=== PATIENT | female | born 1980 | race Caucasian/White ===

== ENCOUNTER 2017-04-14 09:02 | Emergency (ER) | payer BC ==
[~2017-04-14] VITALS: Ht 157.5 cm; Wt 61.2 kg
[~2017-04-14 09:02] MED LIST: ACE500 PO; ACET-1966 PO; AMOX-559 PO; CEP500 PO; CLIN300C99 PO; CYCL10TA29 PO; DAR100 PO; IBU200 PO; IBU800 PO; IBUP800T37 PO; LOR5/325 PO; ONDA4TAB PO; PER PO
[2017-04-14] MEDS ORDERED: NAPR220C12 PO (09:12)
[2017-04-14] MEDS ORDERED: BUPR-474 PO (09:12)
--- NOTE | 2017-04-14 09:14 | ER Report ---
History and Physical Time Seen By MD: 09:14 Hx. of Stated Complaint: pt presents with hx of RLQ pain this am when she awoke. Has vomited x2. HPI/ROS CHIEF COMPLAINT: right abdominal pain and flank pain. HISTORY OF PRESENT ILLNESS: This is a 37 year old female. She has been having pain in the right flank and lower abdomen starting this morning,. Awoke with the pain. Has had vomiting x 2 episodes this morning. Pain worsens in the flank when laying down. Waxes and wanes, but never goes away and is severe. No fevers or chills. She has had an appendectomy and a hysterectomy. No fevers or chills. No diarrhea or bowel changes. Has no dysuria or changes in urination. Allergies: Coded Allergies: No Known Drug Allergies (Verified , 04/14/17) Home Meds Active Scripts Hydrocodone Bit/Acetaminophen (HYDROCODON-ACETAMINOPHEN 5-325) 1 Each Tablet, 1 EACH PO Q4H Y for PAIN, #12 TAB 0 Refills Prov:CRISTIN ALBARRAN MD 04/14/17 Ondansetron (ZOFRAN ODT) 4 Mg Tab.rapdis, 4 MG PO Q6H Y for NAUSEA/VOMITING, # 20 TAB.NGUYỄN 0 Refills Prov:CRISTIN ALBARRAN MD 04/14/17 Reported Medications Naproxen Sodium (ALEVE) 220 Mg Capsule, 220 MG PO PRN, CAPSULE 04/14/17 Bupropion Hcl (WELLBUTRIN XL) 300 Mg Tab.er.24h, 300 MG PO HS, TAB 04/14/17 Acetaminophen (TYLENOL) 325 Mg Tablet, 650 MG PO Q4H 02/15/15 Discontinued Reported Medications Ibuprofen (IBUPROFEN) 800 Mg Tablet, 1 TAB PO Q8H, TAB 02/15/15 Discontinued Scripts Clindamycin Hcl (CLINDAMYCIN HCL) 300 Mg Capsule, 300 MG PO TID, #21 CAPSULE TAKE 1 CAPSULE 3 TIMES A DAY Prov:VEDA ALVAREZ NP 02/17/15 Hydrocodone Bit/Acetaminophen (HYDROCODON-ACETAMINOPHEN 5-325) 1 Each Tablet, 1- 2 EACH PO Q6H, #20 TAB Prov:VEDA ALVAREZ NP 02/15/15 Amoxicillin/Pot Clav 875-125 Mg Tab (AUGMENTIN 875-125 TABLET) 1 Each Tablet, 1 TAB PO Q12H, #20 TAB Prov:VEDA ALVAREZ INSPECTION CLERK 02/15/15 Reviewed Nurses Notes: Yes Hx Smoking: Yes Smoking Status: Current: Every Day Smoker Exposure to Second Hand Smoke?: Yes Hx Substance Use Disorder: No Hx Alcohol Use: Yes (STATES SHE HAS NOT HAD ANY ALCOHOL FOR YEARS) Constitutional Vital Sign - Last 24 Hours 04/14/17 04/14/17 04/14/17 04/14/17 09:08 10:30 12:00 12:30 Temp 97.8 Pulse 96 75 82 76 Resp 20 B/P (MAP) 120/98 118/76 (90) 143/92 (109) 105/66 (79) Pulse Ox 97 94 100 90 O2 Delivery Room Air 04/14/17 04/14/17 12:44 12:45 Pulse 62 62 B/P (MAP) 92/60 (71) 98/60 (73) Pulse Ox 97 93 O2 Delivery Room Air Intake and Output 04/14/17 04/14/17 04/15/17 15:00 23:00 07:00 Intake Total 1000 ml Balance 1000 ml Physical Exam General Appearance: The patient is alert. Acute distress due to pain. Neck: Supple and non tender. Respiratory: Lungs are clear to auscultation. Cardiovascular: Regular rate and rhythm. No murmurs, gallops or rubs. Normal capillary refill. Gastrointestinal: Abdomen with pain in right lower and right flank. Nondistended. Normal active bowel sounds. Has some right CVA tenderness. Neurological: Alert and oriented x3. No focal neurologic deficits Skin: Warm and dry. Musculoskeletal: Extremities are nontender. Full range of motion. DIFFERENTIAL DIAGNOSIS: After history and physical exam, differential diagnosis was considered for right lower abdominal and flank pain including but not limited to musculoskeletal causes, kidney stone, pyelonephritis, shingles, and intra-abdominal causes such as diverticulitis, ovarian cyst, gallbladder. Medical Decision Making Data Points Result Diagram: 04/14/1720 04/14/1720 Laboratory Hematology Test 04/14/17 09:04 04/14/17 09:20 Urine Color Straw Urine Clarity Clear Urine pH 6.0 pH (4.8-9.5) Urine Specific [place] 1.002 Urine Protein Negative mg/dL (NEGATIVE) Urine Glucose (UA) Negative mg/dL (NEGATIVE) Urine Ketones Negative mg/dL (NEGATIVE) Urine Blood Negative (NEGATIVE) Urine Nitrite Negative (NEGATIVE) Urine Bilirubin Negative (NEGATIVE) Urine Urobilinogen Negative mg/dL (0.2-1.9) Urine Leukocyte Esterase Negative (NEGATIVE) Urine RBC None /HPF (0-2/HPF) Urine WBC <1 /HPF (0-5/HPF) Urine Squamous Epithelial Cells Many /LPF (</=FEW) Urine Bacteria Few /HPF (NONE-FEW) Urine Mucus None /HPF (NONE-FEW) Red Blood Count 5.46 M/uL (4.17-5.56) Mean Corpuscular Volume 88.7 fL (80.0-96.0) Mean Corpuscular Hemoglobin 31.0 pg (26.0-33.0) Mean Corpuscular Hemoglobin Concent 34.9 g/dL (32.0-36.0) Red Cell Distribution Width 13.9 % (11.5-14.5) Mean Platelet Volume 8.6 fL (7.2-11.1) Neutrophils (%) (Auto) 63.9 % (39.4-72.5) Lymphocytes (%) (Auto) 28.6 % (17.6-49.6) Monocytes (%) (Auto) 4.5 % (4.1-12.4) Eosinophils (%) (Auto) 2.1 % (0.4-6.7) Basophils (%) (Auto) 0.9 % (0.3-1.4) Nucleated RBC Relative Count (auto) 0.0 /100WBC Neutrophils # (Auto) 4.8 K/uL (2.0-7.4) Lymphocytes # (Auto) 2.1 K/uL (1.3-3.6) Monocytes # (Auto) 0.3 K/uL (0.3-1.0) Eosinophils # (Auto) 0.2 K/uL (0.0-0.5) Basophils # (Auto) 0.1 K/uL (0.0-0.1) Nucleated RBC Absolute Count (auto) 0.00 K/uL Peripheral Blood Smear No Y/N Sodium Level 142 mmol/L (137-145) Potassium Level 3.8 mmol/L (3.5-5.0) Chloride Level 105 mmol/L (98-107) Carbon Dioxide Level 22 mmol/L (22-31) Blood Urea Nitrogen 5 mg/dl (7-18) Creatinine 0.80 mg/dl (0.52-1.04) Glomerular Filtration Rate Calc > 60.0 Random Glucose 76 mg/dl (75-110) Calcium Level 9.5 mg/dl (8.4-10.2) Total Bilirubin 0.5 mg/dl (0.2-1.3) Aspartate Amino Transf (AST/SGOT) 18 U/L (0-35) Alanine Aminotransferase (ALT/SGPT) 27 U/L (0-56) Alkaline Phosphatase 80 U/L (0-126) Total Protein 7.6 gm/dl (6.3-8.2) Albumin 4.5 g/dl (3.5-5.0) Amylase Level 78 U/L (0-110) Lipase 87 U/L (23-300) Human Chorionic Gonadotropin, Qual Negative (NEGATIVE) Chemistry Test 04/14/17 09:04 04/14/17 09:20 Urine Color Straw Urine Clarity Clear Urine pH 6.0 pH (4.8-9.5) Urine Specific [place] 1.002 Urine Protein Negative mg/dL (NEGATIVE) Urine Glucose (UA) Negative mg/dL (NEGATIVE) Urine Ketones Negative mg/dL (NEGATIVE) Urine Blood Negative (NEGATIVE) Urine Nitrite Negative (NEGATIVE) Urine Bilirubin Negative (NEGATIVE) Urine Urobilinogen Negative mg/dL (0.2-1.9) Urine Leukocyte Esterase Negative (NEGATIVE) Urine RBC None /HPF (0-2/HPF) Urine WBC <1 /HPF (0-5/HPF) Urine Squamous Epithelial Cells Many /LPF (</=FEW) Urine Bacteria Few /HPF (NONE-FEW) Urine Mucus None /HPF (NONE-FEW) White Blood Count 7.5 k/uL (4.5-11.0) Red Blood Count 5.46 M/uL (4.17-5.56) Hemoglobin 16.9 g/dL (12.0-16.0) Hematocrit 48.5 % (34.0-47.0) Mean Corpuscular Volume 88.7 fL (80.0-96.0) Mean Corpuscular Hemoglobin 31.0 pg (26.0-33.0) Mean Corpuscular Hemoglobin Concent 34.9 g/dL (32.0-36.0) Red Cell Distribution Width 13.9 % (11.5-14.5) Platelet Count 194 K/uL (150-450) Mean Platelet Volume 8.6 fL (7.2-11.1) Neutrophils (%) (Auto) 63.9 % (39.4-72.5) Lymphocytes (%) (Auto) 28.6 % (17.6-49.6) Monocytes (%) (Auto) 4.5 % (4.1-12.4) Eosinophils (%) (Auto) 2.1 % (0.4-6.7) Basophils (%) (Auto) 0.9 % (0.3-1.4) Nucleated RBC Relative Count (auto) 0.0 /100WBC Neutrophils # (Auto) 4.8 K/uL (2.0-7.4) Lymphocytes # (Auto) 2.1 K/uL (1.3-3.6) Monocytes # (Auto) 0.3 K/uL (0.3-1.0) Eosinophils # (Auto) 0.2 K/uL (0.0-0.5) Basophils # (Auto) 0.1 K/uL (0.0-0.1) Nucleated RBC Absolute Count (auto) 0.00 K/uL Peripheral Blood Smear No Y/N Glomerular Filtration Rate Calc > 60.0 Calcium Level 9.5 mg/dl (8.4-10.2) Total Bilirubin 0.5 mg/dl (0.2-1.3) Aspartate Amino Transf (AST/SGOT) 18 U/L (0-35) Alanine Aminotransferase (ALT/SGPT) 27 U/L (0-56) Alkaline Phosphatase 80 U/L (0-126) Total Protein 7.6 gm/dl (6.3-8.2) Albumin 4.5 g/dl (3.5-5.0) Amylase Level 78 U/L (0-110) Lipase 87 U/L (23-300) Human Chorionic Gonadotropin, Qual Negative (NEGATIVE) Urinalysis Test 04/14/17 09:04 Urine Color Straw Urine Clarity Clear Urine pH 6.0 pH (4.8-9.5) Urine Specific [place] 1.002 Urine Protein Negative mg/dL (NEGATIVE) Urine Glucose (UA) Negative mg/dL (NEGATIVE) Urine Ketones Negative mg/dL (NEGATIVE) Urine Blood Negative (NEGATIVE) Urine Nitrite Negative (NEGATIVE) Urine Bilirubin Negative (NEGATIVE) Urine Urobilinogen Negative mg/dL (0.2-1.9) Urine Leukocyte Esterase Negative (NEGATIVE) Urine RBC None /HPF (0-2/HPF) Urine WBC <1 /HPF (0-5/HPF) Urine Squamous Epithelial Cells Many /LPF (</=FEW) Urine Bacteria Few /HPF (NONE-FEW) Urine Mucus None /HPF (NONE-FEW) EKG/Imaging Imaging ABDOMEN/PELVIS WITH CONTRAST Provided history: right lower quandrant and flank pain Additional pertinent history: none TECHNIQUE: Spiral scan was obtained from the lower chest through the symphysis with intravenous contrast Contrast dose: 75 mL Isovue 370 intravenously. Source images were reformatted in the coronal and sagittal planes. Additional series performed today: none One of the following dose optimization techniques was utilized in the performance of this exam: Automated exposure control; adjustment of the mA and/ or kV according to the patient's size; or use of an iterative reconstruction technique. Specific details can be referenced in the facility's radiology CT exam operational policy. COMPARISON STUDIES: CT 10/26/13 FINDINGS: Lower chest: Negative Liver/biliary: Liver demonstrates normal density, morphology without focal lesion. Surface is smooth. No vascular thromboses. There is subtle thickening and hyperdensity are hyperenhancement along the anterior inferior gallbladder wall best seen axial image 65, coronal image 24 and sagittal image 52. The area of abnormality measures approximately 11 mm in length along the wall and between 3 and 4 mm in thickness. As best I can determine, and this is intramural and not in the lumen. Review of ultrasound reveals no correlate. Bile ducts are normal. Pancreas: Negative Spleen: Negative Adrenal glands: Negative Kidneys / ureters / bladder / genitourinary / retroperitoneum: Kidneys, ureters and bladder are normal. Uterus is absent. There is a small amount of free fluid in the posterior inferior pelvis. The right ovary is positioned further laterally than is typical over the iliac fossa containing a cyst or dominant follicle measuring 18 x 24 mm. Left ovary is located in typical position without a cyst or solid mass. Bowel / peritoneum / mesenteries: Negative. Appendix not visualized. Vessels: There is a patent left common iliac vein stent, unchanged. Lymph nodes: negative Body wall: negative Bones: negative IMPRESSION: 1. Focal thickening of the anterior fundal wall of the gallbladder probably reflective of chronic cholecystitis. Neoplasm much less likely. Correlate with ultrasound. 2. Right ovary is lateral position iliac fossa directly posterior to the cecum containing a cyst or dominant follicle. I do not identify an appendix. There is no inflammatory process in this region. 3. Patent left common iliac vein stent. Report Dictated By: Andriy Khan MD at 04/14/2017 11:43 AM EXAMINATION: Limited right upper quadrant ultrasound Additional Pertinent history: Right abdominal pain. COMPARISON STUDIES: 10/16/2016. CT of the abdomen and pelvis done earlier today. FINDINGS: Gallbladder: no stones or sludge. The gallbladder wall is minimally thickened at 3.8 mm however the gallbladder is mildly contracted. No pericholecystic fluid. Negative ultrasound Robbins sign. Liver: Normal size and echotexture. No focal abnormality and a smooth surface. Portal vein is patent. No ascites. Common duct: normal 4.5 mm. Pancreas: Visualized portions are unremarkable. Distal portions are obscured by bowel gas. Right kidney: negative Proximal IVC/Aorta: negative IMPRESSION: The gallbladder does show mild wall thickening mostly at the fundal region without a focal abnormality or other abnormal findings to suggest acute abnormality. This finding could be secondary mild contraction of the gallbladder. A follow-up ultrasound in 6-8 weeks can reevaluate the gallbladder wall for any focal abnormality. Report Dictated By: Gerber Thomas at 04/14/2017 12:13 PM Transvaginal pelvic ultrasound INDICATION: Right-sided pelvic pain. COMPARISON: CT of the abdomen and pelvis done earlier today. FINDINGS: Status post hysterectomy. There is no free fluid in the cul-de-sac. There is mild amount of free fluid in the right ovary. Urinary bladder is empty. Pelvic vessels appear unremarkable on this examination. Right ovary measures 3.6 x 2.2 x 2.2 cm and shows normal blood flow and contains 2 simple cysts, 2 cm and 1.7 cm. Left ovary not visualized. No adnexal masses. IMPRESSION: 1. Right ovary shows 2 simple cysts without other focal abnormality. There is small amount of fluid around the right ovary which is nonspecific, but could be secondary to a small ruptured cyst. 2. Left ovary is not visualized. Report Dictated By: Gerber Thomas at 04/14/2017 12:09 PM ED Course/Re-evaluation Clinical Indication for ER IV: Hydration, IV Access ED Course Patient had some relief with Morphine 4mg IV and Zofran 4mg IV. CT scan showed question of gallbladder wall thickening. Ultrasounds were done of the gallbladder and pelvis as noted. Suspect likely ruptured ovarian cyst as cause of her pain. Gall bladder with some contraction and recommended follow-up. She is going to follow-up with Dr. English for further evaluation. Decision to Disposition Date: Apr 14, 2017 Decision to Disposition Time: 12:36 Depart Departure Latest Vital Signs Vital Signs Date Time Temp Pulse Resp B/P (MAP) Pulse Ox O2 Delivery O2 Flow Rate FiO2 04/14/17 12:45 62 98/60 (73) 93 04/14/17 12:44 Room Air 04/14/17 09:08 97.8 20 Impression: Primary Impression: Abdominal pain, RLQ Condition: Improved Disposition: HOME OR SELF-CARE Referrals: OLIVIA HORTON PA-C (PCP) New Scripts Hydrocodone Bit/Acetaminophen (HYDROCODON-ACETAMINOPHEN 5-325) 1 Each Tablet 1 EACH PO Q4H Y for PAIN, #12 TAB 0 Refills Prov: CRISTIN ALBARRAN MD 04/14/17 Ondansetron (ZOFRAN ODT) 4 Mg Tab.rapdis 4 MG PO Q6H Y for NAUSEA/VOMITING, #20 TAB.NGUYỄN 0 Refills Prov: CRISTIN ALBARRAN MD 04/14/17 Patient Instructions: Abdominal Pain (ED) Additional Instructions: Follow-up with Dr. English for further evaluation. Rest and increase fluid intake over the next few days. Lortab 5/325, one every 4 hours as needed for pain. Zofran 4mg, one every 6 hours as needed for nausea. CRISTIN ALBARRAN MD Apr 14, 2017 09:14
[2017-04-14] MEDS ORDERED: MORPHINE 4 MG/ML SDV IVP ONE ×2 (09:20→10:35)
[2017-04-14] MEDS ORDERED: NS(*) 0.9% 1000 ML BAG 1,000 ML IV ONE (09:20)
[2017-04-14] MEDS ORDERED: ONDANSETRON 4 MG/2 ML VIAL IVP ONE (09:20)
[2017-04-14 09:39] LABS: PLATELET COUNT, AUTOMATED 194 K/uL (150-450)
[2017-04-14] MEDS ORDERED: NS 0.9% 20 ML SDV 60 ML ONE (09:54)
[2017-04-14] MEDS ORDERED: IOPAMIDOL 76% 75 ML INFUS BTL 75 ML ONE (09:54)
--- NOTE | 2017-04-14 11:49 | RADIOLOGY IMAGING REPORT ---
FACILITY: [facility] [place] PATIENT NAME: Charisma Duncan : 1980 MR: [id number] V: [id number] EXAM DATE: ORDERING PHYSICIAN: CRISTIN ALBARRAN TECHNOLOGIST: Location: [facility] Patient: Charisma Duncan : 1980 Visit/Account:[id number] Date of Sevice: 04/14/2017 ABDOMEN/PELVIS WITH CONTRAST Provided history: right lower quandrant and flank pain Additional pertinent history: none TECHNIQUE: Spiral scan was obtained from the lower chest through the symphysis with intravenous cont rast Contrast dose: 75 mL Isovue 370 intravenously. Source images were reformatted in the coronal and sagittal planes. Additional series performed today: none One of the following dose optimization techniques was utilized in the performance of this exam: Autom ated exposure control; adjustment of the mA and/or kV according to the patient's size; or use of an i terative reconstruction technique. Specific details can be referenced in the facility's radiology CT exam operational policy. COMPARISON STUDIES: CT 10/26/13 FINDINGS: Lower chest: Negative Liver/biliary: Liver demonstrates normal density, morphology without focal lesion. Surface is smooth. No vascular thromboses. There is subtle thickening and hyperdensity are hyperenhancement along the anterior inferior gallblad michelle wall best seen axial image 65, coronal image 24 and sagittal image 52. The area of abnormality me asures approximately 11 mm in length along the wall and between 3 and 4 mm in thickness. As best I ca n determine, and this is intramural and not in the lumen. Review of ultrasound 10/16/16 reveals no co rrelate. Bile ducts are normal. Pancreas: Negative Spleen: Negative Adrenal glands: Negative Kidneys / ureters / bladder / genitourinary / retroperitoneum: Kidneys, ureters and bladder are james l. Uterus is absent. There is a small amount of free fluid in the posterior inferior pelvis. The right ovary is positioned further laterally than is typical over the iliac fossa containing a cys t or dominant follicle measuring 18 x 24 mm. Left ovary is located in typical position without a cyst or solid mass. Bowel / peritoneum / mesenteries: Negative. Appendix not visualized. Vessels: There is a patent left common iliac vein stent, unchanged. Lymph nodes: negative Body wall: negative Bones: negative IMPRESSION: 1. Focal thickening of the anterior fundal wall of the gallbladder probably reflective of chronic cho lecystitis. Neoplasm much less likely. Correlate with ultrasound. 2. Right ovary is lateral position iliac fossa directly posterior to the cecum containing a cyst or d ominant follicle. I do not identify an appendix. There is no inflammatory process in this region. 3. Patent left common iliac vein stent. Report Dictated By: Andriy Khan MD at 04/14/2017 11:43 AM Report E-Signed By: Andriy Khan MD at 04/14/2017 11:44 AM WSN:[id number]
--- NOTE | 2017-04-14 12:18 | RADIOLOGY IMAGING REPORT ---
FACILITY: [facility] PATIENT NAME: Charisma Duncan : 1980 MR: [id number] V: [id number] EXAM DATE: ORDERING PHYSICIAN: CRISTIN ALBARRAN TECHNOLOGIST: Location: Patient: Charisma Duncan : 1980 Visit/Account:[id number] Date of Sevice: 04/14/2017 Transvaginal pelvic ultrasound INDICATION: Right-sided pelvic pain. COMPARISON: CT of the abdomen and pelvis done earlier today. FINDINGS: Status post hysterectomy. There is no free fluid in the cul-de-sac. There is mild amount of free fluid in the right ovary. Urinary bladder is empty. Pelvic vessels appear unremarkable on this examination. Right ovary measures 3.6 x 2.2 x 2.2 cm and shows normal blood flow and contains 2 simple cysts, 2 cm and 1.7 cm. Left ovary not visualized. No adnexal masses. IMPRESSION: 1. Right ovary shows 2 simple cysts without other focal abnormality. There is small amount of fluid a round the right ovary which is nonspecific, but could be secondary to a small ruptured cyst. 2. Left ovary is not visualized. Report Dictated By: Gerber Thomas at 04/14/2017 12:09 PM Report E-Signed By: Gerber Thomas at 04/14/2017 12:13 PM WSN:[id number]
--- NOTE | 2017-04-14 12:22 | RADIOLOGY IMAGING REPORT ---
FACILITY: [facility] [place] PATIENT NAME: Charisma Duncan : 1980 MR: [id number] V: [id number] EXAM DATE: ORDERING PHYSICIAN: CRISTIN ALBARRAN TECHNOLOGIST: Location: [facility] Patient: Charisma Duncan : 1980 Visit/Account:[id number] Date of Sevice: 04/14/2017 EXAMINATION: Limited right upper quadrant ultrasound Additional Pertinent history: Right abdominal pain. COMPARISON STUDIES: 10/16/2016. CT of the abdomen and pelvis done earlier today. FINDINGS: Gallbladder: no stones or sludge. The gallbladder wall is minimally thickened at 3.8 mm however the g allbladder is mildly contracted. No pericholecystic fluid. Negative ultrasound Robbins sign. Liver: Normal size and echotexture. No focal abnormality and a smooth surface. Portal vein is patent. No ascites. Common duct: normal 4.5 mm. Pancreas: Visualized portions are unremarkable. Distal portions are obscured by bowel gas. Right kidney: negative Proximal IVC/Aorta: negative IMPRESSION: The gallbladder does show mild wall thickening mostly at the fundal region without a focal abnormalit y or other abnormal findings to suggest acute abnormality. This finding could be secondary mild contr action of the gallbladder. A follow-up ultrasound in 6-8 weeks can reevaluate the gallbladder wall fo r any focal abnormality. Report Dictated By: Gerber Thomas at 04/14/2017 12:13 PM Report E-Signed By: Gerber Thomas at 04/14/2017 12:18 PM WSN:[id number]
[2017-04-14] MEDS ORDERED: LOR5/325 PO (12:40)
[2017-04-14] MEDS ORDERED: ONDA4TAB PO (12:40)
[2017-04-14 12:45] VITALS: BP 98/60
== END 2017-04-14 12:48 | disposition home or self-care (01) ==
LOC: ER 09:30
DX: N83.201 Unspecified ovarian cyst, right side (principal); Z90.710 Acquired absence of both cervix and uterus
CPT/HCPCS: 74177; 76705; 76830; 81001; 82150; 83690; 84703; 85025; 96361; 96374; 96375; 96376; 99284; J2270; J2405; J7030; J7050; Q9967; 82040; 82247; 82310; 82374; 82435; 82565; 82947; 84075; 84132; 84155; 84295; 84450; 84460; 84520

== ENCOUNTER → 2017-04-17 | Outpatient (CLI) | payer BC ==
[~2017-04-17] MED LIST changes: +BUPR-474 PO; +NAPR220C12 PO; +SINCALIDE 5 MCG VIAL INJ ONE
--- NOTE | 2017-04-17 10:46 | RADIOLOGY IMAGING REPORT ---
FACILITY: [facility] PATIENT NAME: Charisma Duncan : 1980 MR: [id number] V: [id number] EXAM DATE: ORDERING PHYSICIAN: TATA RILEY TECHNOLOG[place]: [place] [facility] [place]isma [place] : 1980 Visit/Account:[id number] Date of Sevice: 04/17/2017 GALLBLADDER W KINEVAC History: Right upper quadrant pain. Evaluate gallbladder. Comparison study: April 14, 2017. Procedure: There has been satisfactory and complete grayscale ultrasonic evaluation of the gallbladde r prior to and following the intravenous injection of CCK 2.5 mL's. Findings: Gallbladder: Images of the gallbladder show minimal gallbladder distention. The wall thickness is at the upper limits of normal. On the prior exam is 3.1 mm. Gallbladder imaging for gallbladder volume measurements was continued 40 minutes after the injection of CCK 2.5 mL. Preinjection gallbladder volume 18.3 mL. Pain level stated as 3/10. No nausea. Injection volume 22.1 mL. With the injection of CCK nausea increased to 10 out of 10 and pain remain ed 3. 5 minute injection volume 21.6 mL. Nausea rated as 10 out of 10. 10 minute injection volume 21.1 mL. Nausea rated as 5 out of 10. 15 minute volume 20.1 mL. Nausea and pain rated as 3 out of 10. 20 minute volume 15.2 mL. Nausea and pain rated as 3 out of 10. 25 minute volume 16.2 mL. Nausea and pain rated as 3 out of 10. 30 minute volume 16.9 mL's. Nausea rated as 2 and pain rated as 3. 35 minutes volume 17.1 mL. 40 minutes volume 18.5 mL. IMPRESSION: 1. The gallbladder shows no gallstone disease or biliary ductal dilatation. Gallbladder wall thickn ess on the prior exam was at the upper limits of normal at 3.1 mm. 2. Gallbladder contraction following CCK injection of 2.5 mL's is illustrated above. The ejection f raction from the volume during injection and at 20 minutes is approximately 32% which is at the lower range of normal. HIDA imaging may be helpful for further evaluation. Report Dictated By: Edward Valero MD at 04/17/2017 10:35 AM Report E-Signed By: Edward Valero MD at 04/17/2017 10:43 AM WSN:[email or web address]
== END ==
LOC: US 04:33
PROVIDERS: ATTEND Surgery
DX: R10.11 Right upper quadrant pain (principal)
CPT/HCPCS: 76705; J2805

== ENCOUNTER 2017-04-21 00:15 | Day surgery (SDC) | payer BC ==
--- NOTE | 2017-04-17 16:20 | HISTORY AND PHYSICAL ---
DATE OF ADMISSION: April 21, 2017 CHIEF COMPLAINT Right-sided abdominal pain. HISTORY OF PRESENT ILLNESS This is a 37-year-old female with a several day history of right-sided abdominal pain that radiates to the back. It is worse after eating. She has no history of trauma. She does smoke. She does not drink alcohol. She does not use NSAIDs or aspirin. She has no urinary complaints. She has some nausea. She was seen in the Emergency Room a couple of times. CBC, UA, chemistry panel, and lipase were normal. CT showed a small cyst on the right ovary and a small area of gallbladder wall thickening. Ultrasound of the pelvis revealed small fluid around the ovarian cyst. Ultrasound of the gallbladder showed a small area of gallbladder wall thickening. She had an ultrasound a few months ago of the gallbladder that was normal. She continued to be quite symptomatic. She then underwent an ultrasound with Kinevac stimulation. This showed poor contractility of the gallbladder and reproduction of her pain. PAST SURGICAL HISTORY 1. Appendectomy. 2. Femoral artery stent placement. 3. Laparoscopy. 4. Partial hysterectomy. 5. [place] teeth removed. ALLERGIES She has no known drug allergies. MEDICATIONS She is currently on Wellbutrin 300 mg a day. REVIEW OF SYSTEMS No cardiac, pulmonary, liver, or kidney disease, diabetes, or hypertension. No history of deep vein thrombosis. PHYSICAL EXAMINATION GENERAL: A 37-year-old female in no acute distress. LUNGS: Clear. HEART: Regular rhythm. ABDOMEN: Mild tenderness in the epigastrium and right upper quadrant. No palpable masses. IMPRESSION Acalculous cholecystitis. PLAN Laparoscopic cholecystectomy with intraoperative cholangiogram. I discussed the procedure, complications, recovery time, and possibility this may not relieve her pain. She seems to understand and wishes to proceed. BALDEV
[~2017-04-21] VITALS: Ht 157.5 cm; Wt 61.2 kg
[2017-04-21] VITALS (8 sets, daily range): BP systolic 115–134; BP diastolic 65–88
[~2017-04-21 00:15] MED LIST changes: -SINCALIDE 5 MCG VIAL INJ ONE
[2017-04-21] MEDS ORDERED: ROPIVACAINE 0.2% 20 ML VIAL ONE (06:55)
[2017-04-21] MEDS ORDERED: IOPAMIDOL 61% 75 ML INFUS BTL 75 ML ONE (06:55)
[2017-04-21] MEDS ORDERED: DEXAMETHASONE SOD PHOS 10MG/ML ONE (11:35)
[2017-04-21] MEDS ORDERED: ONDANSETRON 4 MG/2 ML VIAL ONE (11:35)
[2017-04-21] MEDS ORDERED: PROPOFOL EMUL(*) 10MG/ML 20 ML 20 ML ONE (11:35)
[2017-04-21] MEDS ORDERED: LIDOCAINE MPF 1% 5 ML VIAL ONE (11:35)
[2017-04-21] MEDS ORDERED: fentaNYL CITR 250 MCG/5 ML AMP ONE (11:36)
[2017-04-21] MEDS ORDERED: SUGAMMADEX SOD 200 MG/2 ML SDV ONE (11:38)
[2017-04-21] MEDS ORDERED: FAMOTIDINE 20 MG TAB PO ONE (13:15)
[2017-04-21] MEDS ORDERED: NORMOSOL R SOLN(*) 1000 ML BAG 1,000 ML IV PRN (13:15)
[2017-04-21] MEDS ORDERED: cefOXitin/DEX(*) 2GM/50ML PREM 50 ML IVPB ONE (13:15)
[2017-04-21] MEDS ORDERED: LIDOCAINE/SOD BICARB 8.4% SYR ID ONE (13:15)
[2017-04-21] MEDS ORDERED: MIDAZOLAM 2 MG/2 ML VIAL IVP ONE (13:15)
[2017-04-21] MEDS ORDERED: PROPOFOL EMUL(*) 10MG/ML 20 ML 60 ML ONE (13:39)
[2017-04-21] MEDS ORDERED: HALOPERIDOL LACT 5 MG/ML VIAL IM ONE (13:42)
[2017-04-21] MEDS ORDERED: REMIFENTANIL HCL 1 MG VIAL ONE (13:42)
--- NOTE | 2017-04-21 13:45 | Post Operative Progress Note ---
Post Operative Progress Note Date: Apr 21, 2017 Time: 14:32 Surgeon: dave Anesthesia: dr rodriguez Pre-Op Diagnosis: acalculous cholecystitis Post-Op Diagnosis: same Procedure(s): lap ashley with TATA Byrd MD Apr 21, 2017 13:45
[2017-04-21] MEDS ORDERED: KET10 PO (13:46)
[2017-04-21] MEDS ORDERED: HYDR-4309 PO (13:46)
--- NOTE | 2017-04-21 13:48 | Short(Outpt) Discharge Summary ---
Discharge Summary Reason for Hosp/Final Diag: (1) Acalculous cholecystitis Hospital Course & Plan: lap ashley with gram Departure Discharge to: Home Discharge Instructions Home Meds Active Scripts Ketorolac Tromethamine (KETOROLAC TROMETHAMINE) 10 Mg Tab, 10 MG PO Q6H, #20 TAB Prov:TATA RILEY MD 04/21/17 Hydrocodone Bit/Acetaminophen (NORCO 5-325 TABLET) 1 Each Tablet, 1 EACH PO Q4H Y for PAIN, #30 TAB Prov:TATA RILEY MD 04/21/17 Ondansetron (ZOFRAN ODT) 4 Mg Tab.rapdis, 4 MG PO Q6H Y for NAUSEA/VOMITING, # 20 TAB.NGUYỄN 0 Refills Prov:CRISTIN ALBARRAN MD 04/14/17 Reported Medications Bupropion Hcl (WELLBUTRIN XL) 300 Mg Tab.er.24h, 300 MG PO HS, TAB 04/14/17 Acetaminophen (TYLENOL) 325 Mg Tablet, 650 MG PO Q4H 02/15/15 Discontinued Reported Medications Naproxen Sodium (ALEVE) 220 Mg Capsule, 220 MG PO PRN, CAPSULE 04/14/17 Ibuprofen (IBUPROFEN) 800 Mg Tablet, 1 TAB PO Q8H, TAB 02/15/15 Discontinued Scripts Hydrocodone Bit/Acetaminophen (HYDROCODON-ACETAMINOPHEN 5-325) 1 Each Tablet, 1 EACH PO Q4H Y for PAIN, #12 TAB 0 Refills Prov:CRISTIN ALBARRAN MD 04/14/17 Clindamycin Hcl (CLINDAMYCIN HCL) 300 Mg Capsule, 300 MG PO TID, #21 CAPSULE TAKE 1 CAPSULE 3 TIMES A DAY Prov:VEDA ALVAREZ NP 02/17/15 Hydrocodone Bit/Acetaminophen (HYDROCODON-ACETAMINOPHEN 5-325) 1 Each Tablet, 1- 2 EACH PO Q6H, #20 TAB Prov:VEDA ALVAREZ NP 02/15/15 Amoxicillin/Pot Clav 875-125 Mg Tab (AUGMENTIN 875-125 TABLET) 1 Each Tablet, 1 TAB PO Q12H, #20 TAB Prov:VEDA ALVAREZ NP 02/15/15 Diet: Regular Activity: As Tolerated Special Instructions: ice to incisions for 48 hours remove bandage and shower to see me in one week, call [phone] for TATA Luther MD Apr 21, 2017 13:48
[2017-04-21] MEDS ORDERED: KETOROLAC 30 MG/ML VIAL ONE (14:00)
[2017-04-21] MEDS ORDERED: ROCURONIUM BROM 10 MG/ML 5 ML ONE (14:00)
[2017-04-21] MEDS ORDERED: KETAMINE HCL 200 MG/20 ML MDV ONE (14:00)
[2017-04-21] MEDS ORDERED: NS 0.9% IRRIGATION 1000ML PLCT IR ONE (14:50)
[2017-04-21] MEDS ORDERED: fentaNYL CITR 100 MCG/2 ML AMP ONE (15:05)
--- NOTE | 2017-04-21 15:28 | RADIOLOGY IMAGING REPORT ---
[place] [facility] [place] Charisma Duncan : 1980 MR: [id number] V: [id number] EXAM DATE: ORDERING PHYSICIAN: TATA RILEY TECHNOLOGIST: Location: [facility] Patient: Charisma Duncan : 1980 Visit/Account:[id number] Date of Sevice: 04/21/2017 Technique: CHOLANGIOGRAM OPERATIVE HISTORY: CHOLECYSISITIS Comparison studies: Right upper quadrant ultrasound 10/16/2016 FINDINGS: Multiple fluoroscopic images were obtained for a laparoscopic cholecystectomy. Small fillin g defects are seen within the common duct near the cystic duct remanent. These may represent bubbles versus small residual calculi. Visualized intrahepatic biliary radicles are unremarkable. Contrast is seen within the adjacent small bowel; however, the ampulla is not included in the [id number]. Dose area product: 0.117 mGym2 IMPRESSION: 1. Intraoperative fluoroscopic radiographs as described above. Please see operative report for furth er details. Report Dictated By: Harsh Stanley DO at 04/21/2017 3:18 PM Report E-Signed By: Harsh Stanley DO at 04/21/2017 3:21 PM WSN:[id number]
[2017-04-21] MEDS ORDERED: APAP/HYDROCODONE 325/5 TAB ONE (16:30)
--- NOTE | 2017-04-21 20:24 | OPERATIVE REPORT 1 ---
EVENT DATE: April 21, 2017 SURGEON: Fili English MD ANESTHESIOLOGIST: Sarabjit Kunz MD ANESTHESIA: General. PREOPERATIVE DIAGNOSIS Acalculous cholecystitis. POSTOPERATIVE DIAGNOSIS Acalculous cholecystitis. PROCEDURE PERFORMED Laparoscopic cholecystectomy. DESCRIPTION OF PROCEDURE The patient was placed in the supine position and given general anesthetic. Her abdomen was prepped and draped in a sterile fashion. The skin was anesthetized with 0.2% ropivacaine. A small incision was made above the umbilicus. A Veress needle was inserted. The abdomen was insufflated with CO2. A 5 mm port was placed under direct vision. No bleeding was noted. Two 5 mm ports were placed in the right subcostal region and a 10 mm in the right epigastrium under direct vision. The gallbladder was grasped and raised cephalad. We dissected out the cystic duct and gallbladder junction, placed a clip there, opened the cystic duct, inserted a Taut catheter, and obtained cholangiograms which were normal. The clip was removed. The Taut catheter was removed. The cystic duct was triply clipped proximally and transected. The cystic artery was dissected out, clipped twice proximally, once distally, and transected. We then used electrocautery to dissect the gallbladder from the bed of the liver. This dissection went very nicely. We found one additional branch of the artery. This was clipped. The gallbladder was placed in an Endopouch and removed from the field. We inspected for bleeding. We had perfect hemostasis. The ports were removed under direct vision. No bleeding was noted. The skin was closed with interrupted 4-0 Maxon. Steri-Strips and an Airstrip were placed. The patient tolerated the procedure well. No apparent complications. [facility]
== END 2017-04-21 15:51 | disposition home or self-care (01) ==
LOC: OR 00:15
PROVIDERS: ATTEND Surgery
DX: K81.9 Cholecystitis, unspecified (principal)
CPT/HCPCS: 47563; 74300; 88304; J0694; J1100; J1630; J1885; J2001; J2250; J2405; J2704; J2795; J3010; J3490; Q9967

== ENCOUNTER 2017-04-23 14:18 | Emergency (ER) | payer BC ==
[~2017-04-23 14:18] MED LIST changes: +HYDR-4309 PO; +KET10 PO
--- NOTE | 2017-04-23 14:39 | ER Report ---
History and Physical Time Seen By MD: 14:39 Hx. of Stated Complaint: HAD GALLBLADDER REMOVED ON THURSDAY. REPORTS THAT TODAY SHE TOOK A HYDROCODONE TABLET AND THEN BEGAN HAVING DISCOMFORT IN ABDOMINAL AND BACK. DIFFICULTY TAKING DEEP BREATH. NO BM SINCE THURSDAY PRIOR TO SURGERY. HPI/ROS CHIEF COMPLAINT: Lightheadedness, epigastric abdominal pain HISTORY OF PRESENT ILLNESS: 37-year-old female patient presents to emergency room with complaint of lightheadedness, epigastric abdominal pain, difficulty breathing. Patient states this started approximately 10-15 minutes after she took a hydrocodone pain pill. She states that she had her gallbladder removed on Thursday. She states that she has been in bed the majority time since then. She states that today she is up moving around more and therefore took the pain medication. She states that since then she's been having significant amounts of pain. She denies any nausea, vomiting or diarrhea. Patient states she's not had a bowel movement since Thursday prior to surgery. She states that she's not had any fevers or chills. She states that she was concerned because she is having a hard time breathing. REVIEW OF SYSTEMS: Respiratory: As noted above Cardiovascular: No chest pain, no palpitations. Gastrointestinal: As noted above Musculoskeletal: No back pain. Allergies: Coded Allergies: No Known Drug Allergies (Verified , 04/23/17) Home Meds Active Scripts Oxycodone Hcl/Acetaminophen (PERCOCET 5-325 MG TABLET) 1 Each Tablet, 1 EACH PO Q4-6H Y for PAIN, #20 TAB Prov:WILFRED HERNANDEZ MECHANICAL SYSTEMS DESIGNER 04/23/17 Ketorolac Tromethamine (KETOROLAC TROMETHAMINE) 10 Mg Tab, 10 MG PO Q6H, #20 TAB Prov:TATA ENGLISH MD 04/21/17 Hydrocodone Bit/Acetaminophen (NORCO 5-325 TABLET) 1 Each Tablet, 1 EACH PO Q4H Y for PAIN, #30 TAB Prov:TATA ENGLISH MD 04/21/17 Ondansetron (ZOFRAN ODT) 4 Mg Tab.rapdis, 4 MG PO Q6H Y for NAUSEA/VOMITING, # 20 TAB.NGUYỄN 0 Refills Prov:CRISTIN ALBARRAN MD 04/14/17 Reported Medications Bupropion Hcl (WELLBUTRIN XL) 300 Mg Tab.er.24h, 300 MG PO HS, TAB 04/14/17 Acetaminophen (TYLENOL) 325 Mg Tablet, 650 MG PO Q4H 02/15/15 Discontinued Reported Medications Naproxen Sodium (ALEVE) 220 Mg Capsule, 220 MG PO PRN, CAPSULE 04/14/17 Discontinued Scripts Hydrocodone Bit/Acetaminophen (HYDROCODON-ACETAMINOPHEN 5-325) 1 Each Tablet, 1 EACH PO Q4H Y for PAIN, #12 TAB 0 Refills Prov:CRISTIN ALBARRAN MD 04/14/17 Past Medical/Surgical History Patient has a past medical history of migraines, DVT, pneumonia, bronchitis, urinary tract infection, back pain, dentures, alcohol use. Patient has surgical history of wisdom teeth removed, tubal ligation, hysterectomy, surgery for endometriosis, shunt placed in left leg due to DVT. Patient denies any pertinent family medical history. Reviewed Nurses Notes: Yes Hx Smoking: Yes Smoking Status: Current: Every Day Smoker Exposure to Second Hand Smoke?: Yes Hx Substance Use Disorder: No Hx Alcohol Use: Yes (STATES SHE HAS NOT HAD ANY ALCOHOL FOR YEARS) Constitutional Vital Sign - Last 24 Hours 04/23/17 04/23/17 14:33 17:20 Temp 98.7 Pulse 72 80 Resp 18 16 B/P (MAP) 134/84 118/76 (90) Pulse Ox 94 O2 Delivery Room Air Physical Exam General Appearance: The patient is alert, has no immediate need for airway protection and no current signs of toxicity. ENT: Tympanic membranes are pearly-sanchez, auditory canals are patent, mucous membranes are moist. Respiratory: Chest is non tender, lungs are clear to auscultation. Cardiac: regular rate and rhythm Gastrointestinal: Abdomen is soft and tender in the epigastric and right upper quadrant, no masses, bowel sounds hypoactive. Musculoskeletal: Neck: Neck is supple and non tender. Extremities have full range of motion and are non tender. Skin: No rashes or lesions. DIFFERENTIAL DIAGNOSIS: After history and physical exam differential diagnosis was considered for abdominal pain including but not limited to appendicitis, cholecystitis, gastritis and urinary tract infection. Included in the differential is pancreatitis and pulmonary embolism. Medical Decision Making Data Points Result Diagram: 04/23/17 1500 04/23/17 1500 Laboratory Hematology Test 04/23/17 15:00 04/23/17 15:08 Red Blood Count 4.91 M/uL (4.17-5.56) Mean Corpuscular Volume 89.6 fL (80.0-96.0) Mean Corpuscular Hemoglobin 31.2 pg (26.0-33.0) Mean Corpuscular Hemoglobin Concent 34.9 g/dL (32.0-36.0) Red Cell Distribution Width 13.7 % (11.5-14.5) Mean Platelet Volume 8.7 fL (7.2-11.1) Neutrophils (%) (Auto) 56.5 % (39.4-72.5) Lymphocytes (%) (Auto) 36.5 % (17.6-49.6) Monocytes (%) (Auto) 4.8 % (4.1-12.4) Eosinophils (%) (Auto) 1.4 % (0.4-6.7) Basophils (%) (Auto) 0.8 % (0.3-1.4) Nucleated RBC Relative Count (auto) 0.1 /100WBC Neutrophils # (Auto) 4.0 K/uL (2.0-7.4) Lymphocytes # (Auto) 2.6 K/uL (1.3-3.6) Monocytes # (Auto) 0.3 K/uL (0.3-1.0) Eosinophils # (Auto) 0.1 K/uL (0.0-0.5) Basophils # (Auto) 0.1 K/uL (0.0-0.1) Nucleated RBC Absolute Count (auto) 0.01 K/uL Sodium Level 139 mmol/L (137-145) Potassium Level 3.7 mmol/L (3.5-5.0) Chloride Level 105 mmol/L (98-107) Carbon Dioxide Level 22 mmol/L (22-31) Blood Urea Nitrogen 7 mg/dl (7-18) Creatinine 0.80 mg/dl (0.52-1.04) Glomerular Filtration Rate Calc > 60.0 Random Glucose 73 mg/dl (75-110) Calcium Level 9.0 mg/dl (8.4-10.2) Total Bilirubin 0.4 mg/dl (0.2-1.3) Aspartate Amino Transf (AST/SGOT) 106 U/L (0-35) Alanine Aminotransferase (ALT/SGPT) 71 U/L (0-56) Alkaline Phosphatase 70 U/L (0-126) C-Reactive Protein < 0.5 mg/dl (<1.0) Total Protein 6.7 gm/dl (6.3-8.2) Albumin 3.9 g/dl (3.5-5.0) Amylase Level 60 U/L (0-110) Lipase 99 U/L (23-300) Human Chorionic Gonadotropin, Qual Negative (NEGATIVE) Urine Color Yellow Urine Clarity Clear Urine pH 5.0 pH (4.8-9.5) Urine Specific Milton 1.004 Urine Protein Negative mg/dL (NEGATIVE) Urine Glucose (UA) Negative mg/dL (NEGATIVE) Urine Ketones Negative mg/dL (NEGATIVE) Urine Blood Negative (NEGATIVE) Urine Nitrite Negative (NEGATIVE) Urine Bilirubin Negative (NEGATIVE) Urine Urobilinogen Negative mg/dL (0.2-1.9) Urine Leukocyte Esterase Negative (NEGATIVE) Urine RBC <1 /HPF (0-2/HPF) Urine WBC 1 /HPF (0-5/HPF) Urine Squamous Epithelial Cells Many /LPF (</=FEW) Urine Bacteria Negative /HPF (NONE-FEW) Urine Hyaline Casts Few /LPF (NONE-FEW) Urine Mucus None /HPF (NONE-FEW) Chemistry Test 04/23/17 15:00 04/23/17 15:08 White Blood Count 7.1 k/uL (4.5-11.0) Red Blood Count 4.91 M/uL (4.17-5.56) Hemoglobin 15.3 g/dL (12.0-16.0) Hematocrit 43.9 % (34.0-47.0) Mean Corpuscular Volume 89.6 fL (80.0-96.0) Mean Corpuscular Hemoglobin 31.2 pg (26.0-33.0) Mean Corpuscular Hemoglobin Concent 34.9 g/dL (32.0-36.0) Red Cell Distribution Width 13.7 % (11.5-14.5) Platelet Count 147 K/uL (150-450) Mean Platelet Volume 8.7 fL (7.2-11.1) Neutrophils (%) (Auto) 56.5 % (39.4-72.5) Lymphocytes (%) (Auto) 36.5 % (17.6-49.6) Monocytes (%) (Auto) 4.8 % (4.1-12.4) Eosinophils (%) (Auto) 1.4 % (0.4-6.7) Basophils (%) (Auto) 0.8 % (0.3-1.4) Nucleated RBC Relative Count (auto) 0.1 /100WBC Neutrophils # (Auto) 4.0 K/uL (2.0-7.4) Lymphocytes # (Auto) 2.6 K/uL (1.3-3.6) Monocytes # (Auto) 0.3 K/uL (0.3-1.0) Eosinophils # (Auto) 0.1 K/uL (0.0-0.5) Basophils # (Auto) 0.1 K/uL (0.0-0.1) Nucleated RBC Absolute Count (auto) 0.01 K/uL Glomerular Filtration Rate Calc > 60.0 Calcium Level 9.0 mg/dl (8.4-10.2) Total Bilirubin 0.4 mg/dl (0.2-1.3) Aspartate Amino Transf (AST/SGOT) 106 U/L (0-35) Alanine Aminotransferase (ALT/SGPT) 71 U/L (0-56) Alkaline Phosphatase 70 U/L (0-126) C-Reactive Protein < 0.5 mg/dl (<1.0) Total Protein 6.7 gm/dl (6.3-8.2) Albumin 3.9 g/dl (3.5-5.0) Amylase Level 60 U/L (0-110) Lipase 99 U/L (23-300) Human Chorionic Gonadotropin, Qual Negative (NEGATIVE) Urine Color Yellow Urine Clarity Clear Urine pH 5.0 pH (4.8-9.5) Urine Specific Milton 1.004 Urine Protein Negative mg/dL (NEGATIVE) Urine Glucose (UA) Negative mg/dL (NEGATIVE) Urine Ketones Negative mg/dL (NEGATIVE) Urine Blood Negative (NEGATIVE) Urine Nitrite Negative (NEGATIVE) Urine Bilirubin Negative (NEGATIVE) Urine Urobilinogen Negative mg/dL (0.2-1.9) Urine Leukocyte Esterase Negative (NEGATIVE) Urine RBC <1 /HPF (0-2/HPF) Urine WBC 1 /HPF (0-5/HPF) Urine Squamous Epithelial Cells Many /LPF (</=FEW) Urine Bacteria Negative /HPF (NONE-FEW) Urine Hyaline Casts Few /LPF (NONE-FEW) Urine Mucus None /HPF (NONE-FEW) Urinalysis Test 04/23/17 15:08 Urine Color Yellow Urine Clarity Clear Urine pH 5.0 pH (4.8-9.5) Urine Specific Milton 1.004 Urine Protein Negative mg/dL (NEGATIVE) Urine Glucose (UA) Negative mg/dL (NEGATIVE) Urine Ketones Negative mg/dL (NEGATIVE) Urine Blood Negative (NEGATIVE) Urine Nitrite Negative (NEGATIVE) Urine Bilirubin Negative (NEGATIVE) Urine Urobilinogen Negative mg/dL (0.2-1.9) Urine Leukocyte Esterase Negative (NEGATIVE) Urine RBC <1 /HPF (0-2/HPF) Urine WBC 1 /HPF (0-5/HPF) Urine Squamous Epithelial Cells Many /LPF (</=FEW) Urine Bacteria Negative /HPF (NONE-FEW) Urine Hyaline Casts Few /LPF (NONE-FEW) Urine Mucus None /HPF (NONE-FEW) EKG/Imaging EKG Interpretation 12 lead EKG: Rhythm: normal sinus rhythm Oran: normal QRS: RSR prime in V1 ST segments: Nonspecific ST abnormality Imaging CT abdomen and pelvis with IV contrast Indication: Abdominal pain. Recent cholecystectomy. Comparison: 04/14/2017.. Technique: Axial CT images were obtained through the abdomen and pelvis during injection of nonionic iodinated intravenous contrast. Reformatted coronal and sagittal images were also obtained. One of the following dose optimization techniques was utilized in the performance of this exam: Automated exposure control; adjustment of the mA and/ or kV according to the patient's size; or use of an iterative reconstruction technique. Specific details can be referenced in the facility's radiology CT exam operational policy. Contrast: 75 ml of Isovue-370 IV contrast. Findings: Lower lung bullock: Mild dependent atelectasis and scarring. Liver: No focal parenchymal abnormality of the liver. Biliary: Status post cholecystectomy with clips in gallbladder fossa. No associated sequelae. The biliary system is unremarkable. Pancreas: Normal appearance. Spleen: Normal appearance. Adrenal glands: Unremarkable. Kidneys / retroperitoneum: No evidence of nephrolithiasis or hydronephrosis. No focal abnormality. Bowel / peritoneum / mesenteries: Visualized gastrointestinal tract is within normal limits. The appendix is not visualized. Stomach is decompressed and grossly normal. Small amount of free fluid seen in pelvis most likely physiologic. No fluid collections, free air or focal areas of inflammation. Lymph node assessment: No pathologic adenopathy identified. Pelvic structures: Status post hysterectomy. The remaining pelvic structures visualized within normal limits. Vessels: No significant atherosclerotic calcifications seen throughout a nonaneurysmal abdominal aorta and branches. A left iliac venous stent is in place and is unremarkable and stable. Musculoskeletal / Body wall: No acute or aggressive osseous abnormality. IMPRESSION: 1. No acute intra-abdominal abnormality 2. Status post cholecystectomy without sequelae. Report Dictated By: Gerber Thomas at 04/23/2017 4:16 PM Report E-Signed By: Gerber Thomas at 04/23/2017 4:[address] angiogram chest without and with contrast Indication: Shortness breath. Status post cholecystectomy. Comparison: None available. Technique: Axial CT images are obtained through the chest after administration of 75 mL Isovue 370 IV contrast. Reformatted coronal and sagittal images were reviewed as well as coronal MIP images. One of the following dose optimization techniques was utilized in the performance of this exam: automated exposure control; adjustment of the mA and/ or kV according to the patient's size; or use of an iterative reconstruction technique. Specific details can be referenced in the facility's radiology CT exam operational policy. FINDINGS: There is suboptimal opacification of the pulmonary arteries. A emboli cannot be excluded. Heart is normal size without pericardial effusion. The aorta shows no aneurysm or dissection. Mediastinum and hilar regions show no enlarged lymph nodes or abnormal density. Lungs show mild dependent atelectasis and scarring. No consolidations, pleural effusion or pneumothorax. No discrete nodule or focal interstitial opacity. The proximal left mainstem bronchus does show small nodule/debris. Similar appearance is seen in the distal right mainstem bronchus. Bony structures show no acute fractures or aggressive bony lesions. Chest wall shows no enlarged axillary lymph nodes or masses. Limited views of the upper abdomen are unremarkable. IMPRESSION: 1. Nondiagnostic pulmonary angiogram. There is suboptimal opacification of the pulmonary arteries. Pulmonary emboli cannot be excluded on this exam. 2. No acute cardiothoracic abnormality 3. The mainstem bronchus bilaterally does show small nodule or debris. Follow- up bronchoscopy can evaluate for any nodules. Report Dictated By: Gerber Thomas at 04/23/2017 4:07 PM Report E-Signed By: Gerber Thomas at 04/23/2017 4:16 PM ED Course/Re-evaluation ED Course Patient is admitted and examined, history and physical were obtained. Differential diagnoses were considered. On examination patient is alert and oriented, heart is regular. Patient does have some tenderness in the epigastric and the right upper quadrant. An IV was started, CBC, CMP, troponin, EKG, CT pulmonary angiogram and CT the abdomen and pelvis were done. The labs were unremarkable except for mildly elevated AST and ALT. Troponin was negative, EKG showed a normal sinus rhythm. CT pulmonary angiogram was negative, CT scan of the abdomen and pelvis was negative. I did discuss the case with Dr. English, general surgeon, who performed the surgery. He felt that the elevated liver enzymes is secondary to surgery was not concerned about that. He recommended giving the patient's pain under control and discharge her home. I did give her a dose of hydrocodone here in the emergency room. She states she had no improvement in her pain. We will go ahead and switch her to Percocet and have her follow-up with Dr. English as previously scheduled. The patient verbalized understanding and agreement with plan. Decision to Disposition Date: Apr 23, 2017 Decision to Disposition Time: 17:25 Depart Departure Latest Vital Signs Vital Signs Date Time Temp Pulse Resp B/P (MAP) Pulse Ox O2 Delivery O2 Flow Rate FiO2 04/23/17 17:20 80 16 118/76 (90) 04/23/17 14:33 98.7 94 Room Air Impression: Primary Impression: Abdominal pain Condition: Improved Disposition: HOME OR SELF-CARE Referrals: OLIVIA HORTON PA-C (PCP) New Scripts Oxycodone Hcl/Acetaminophen (PERCOCET 5-325 MG TABLET) 1 Each Tablet 1 EACH PO Q4-6H Y for PAIN, #20 TAB Prov: WILFRED HERNANDEZ 04/23/17 Patient Instructions: Abdominal Pain (ED) Additional Instructions: Increase fluid intake. Get plenty of rest. Follow up with Dr. English as previously scheduled. Return to the ER if condition worsens. Ice the surgical sites. Problem Qualifiers Primary Impression: Abdominal pain Abdominal location: epigastric Qualified Codes: R10.13 - Epigastric pain WILFRED HERNANDEZ Apr 23, 2017 14:39
[2017-04-23] MEDS ORDERED: NS(*) 0.9% 1000 ML BAG 1,000 ML IV ONE (14:47)
[2017-04-23] MEDS ORDERED: IOPAMIDOL 76% 75 ML INFUS BTL 75 ML ONE (14:59)
--- NOTE | 2017-04-23 15:11 | EKG ---
FACILITY: [facility] [place] PATIENT NAME: DIDIER PARRA : [id number] MR: [id number] V: [id number] EXAM DATE: ORDERING PHYSICIAN: WILFRED HERNANDEZ TECHNOLOGIST: CRISTINE Nguyen Reason : SOB Blood Pressure : / mmHG Vent. Rate : 063 BPM Atrial Rate : 063 BPM P-R Int : 118 ms QRS Dur : 088 ms QT Int : 366 ms P-R-T Axes : 077 080 065 degrees QTc Int : 374 ms Normal sinus rhythm RSR' or QR pattern in V1 suggests right ventricular conduction delay ST abnormality, possible digitalis effect Abnormal ECG No previous ECGs available Confirmed by KATHIE BLAKE ([id number]) on 04/23/2017 5:44:52 PM Referred By: WILFRED Confirmed By:KATHIE BLAKE
[2017-04-23 15:21] LABS: PLATELET COUNT, AUTOMATED 147 K/uL (150-450)
--- NOTE | 2017-04-23 16:19 | RADIOLOGY IMAGING REPORT ---
FACILITY: [facility] PATIENT NAME: Charisma Duncan : 1980 MR: [id number] V: [id number] EXAM DATE: ORDERING PHYSICIAN: WILFRED HERNANDEZ TECHNOLOGIST: Location: [facility] Patient: Charisma Duncan : 1980 Visit/Account:[id number] Date of Sevice: 04/23/2017 CT angiogram chest without and with contrast Indication: Shortness breath. Status post cholecystectomy. Comparison: None available. Technique: Axial CT images are obtained through the chest after administration of 75 mL Isovue 370 IV contrast. Reformatted coronal and sagittal images were reviewed as well as coronal MIP images. One of the following dose optimization techniques was utilized in the performance of this exam: auto mated exposure control; adjustment of the mA and/or kV according to the patient's size; or use of an iterative reconstruction technique. Specific details can be referenced in the facility's radiology C T exam operational policy. FINDINGS: There is suboptimal opacification of the pulmonary arteries. A emboli cannot be excluded. Heart is normal size without pericardial effusion. The aorta shows no aneurysm or dissection. Mediast inum and hilar regions show no enlarged lymph nodes or abnormal density. Lungs show mild dependent atelectasis and scarring. No consolidations, pleural effusion or pneumothor ax. No discrete nodule or focal interstitial opacity. The proximal left mainstem bronchus does show s mall nodule/debris. Similar appearance is seen in the distal right mainstem bronchus. Bony structures show no acute fractures or aggressive bony lesions. Chest wall shows no enlarged axil carmela lymph nodes or masses. Limited views of the upper abdomen are unremarkable. IMPRESSION: 1. Nondiagnostic pulmonary angiogram. There is suboptimal opacification of the pulmonary arteries. Pu lmonary emboli cannot be excluded on this exam. 2. No acute cardiothoracic abnormality 3. The mainstem bronchus bilaterally does show small nodule or debris. Follow-up bronchoscopy can surjit luate for any nodules. Report Dictated By: Gerber Thomas at 04/23/2017 4:07 PM Report E-Signed By: Gerber Thomas at 04/23/2017 4:16 PM WSN:[id number]
--- NOTE | 2017-04-23 16:26 | RADIOLOGY IMAGING REPORT ---
FACILITY: [facility] PATIENT NAME: Charisma Duncan : 1980 MR: [id number] V: [id number] EXAM DATE: ORDERING PHYSICIAN: WILFRED HERNANDEZ TECHNOLOGIST: Location: [facility] - [place] Patient: Charisma Duncan : 1980 Visit/Account:[id number] Date of Sevice: 04/23/2017 CT abdomen and pelvis with IV contrast Indication: Abdominal pain. Recent cholecystectomy. Comparison: 04/14/2017.. Technique: Axial CT images were obtained through the abdomen and pelvis during injection of nonioni c iodinated intravenous contrast. Reformatted coronal and sagittal images were also obtained. One of the following dose optimization techniques was utilized in the performance of this exam: Autom ated exposure control; adjustment of the mA and/or kV according to the patient's size; or use of an i terative reconstruction technique. Specific details can be referenced in the facility's radiology C T exam operational policy. Contrast: 75 ml of Isovue-370 IV contrast. Findings: Lower lung bullock: Mild dependent atelectasis and scarring. Liver: No focal parenchymal abnormality of the liver. Biliary: Status post cholecystectomy with clips in gallbladder fossa. No associated sequelae. The harry iary system is unremarkable. Pancreas: Normal appearance. Spleen: Normal appearance. Adrenal glands: Unremarkable. Kidneys / retroperitoneum: No evidence of nephrolithiasis or hydronephrosis. No focal abnormality. Bowel / peritoneum / mesenteries: Visualized gastrointestinal tract is within normal limits. The appe ndix is not visualized. Stomach is decompressed and grossly normal. Small amount of free fluid seen in pelvis most likely physiologic. No fluid collections, free air or focal areas of inflammation. Lymph node assessment: No pathologic adenopathy identified. Pelvic structures: Status post hysterectomy. The remaining pelvic structures visualized within nor mal limits. Vessels: No significant atherosclerotic calcifications seen throughout a nonaneurysmal abdominal aort a and branches. A left iliac venous stent is in place and is unremarkable and stable. Musculoskeletal / Body wall: No acute or aggressive osseous abnormality. IMPRESSION: 1. No acute intra-abdominal abnormality 2. Status post cholecystectomy without sequelae. Report Dictated By: Gerber Thomas at 04/23/2017 4:16 PM Report E-Signed By: Gerber Thomas at 04/23/2017 4:23 PM WSN:[id number]
[2017-04-23] MEDS ORDERED: APAP/HYDROCODONE 325/5 TAB PO ONE (16:40)
[2017-04-23 17:20] VITALS: BP 118/76
[2017-04-23] MEDS ORDERED: OXYC-865 PO (17:23)
== END 2017-04-23 17:36 | disposition home or self-care (01) ==
LOC: ER 14:51
DX: R10.13 Epigastric pain (principal)
CPT/HCPCS: 71275; 74177; 81001; 82150; 83690; 84703; 85025; 86140; 93005; 99284; Q9967; 82040; 82247; 82310; 82374; 82435; 82565; 82947; 84075; 84132; 84155; 84295; 84450; 84460; 84520

== ENCOUNTER 2017-12-29 11:23 | Emergency (ER) | payer BC ==
[~2017-12-29 11:23] MED LIST changes: -HYDR-4309 PO; +HYDR-653 PO; +OXYC-865 PO
--- NOTE | 2017-12-29 11:36 | ER Report ---
History and Physical Time Seen By MD: 11:36 HPI/ROS CHIEF COMPLAINT: Redness to left lower extremity HISTORY OF PRESENT ILLNESS: Patient is a 37-year-old female with no significant past medical history presents to the emergency department complaining of redness to the left lower leg along with pain. Patient had a similar episode in the past few years and was diagnosed with a cellulitis. Patient reports not feeling well last evening and subjective fevers without chills. She denies any traumatic injury to the lower extremity. REVIEW OF SYSTEMS: Respiratory: No cough, no dyspnea. Cardiovascular: No chest pain, no palpitations. Gastrointestinal: No vomiting, no abdominal pain. Musculoskeletal: No back pain. Left lower extremity pain Skin: redness to left lower ext Allergies: Coded Allergies: No Known Drug Allergies (Verified , 12/29/17) Home Meds Active Scripts Hydrocodone Bit/Acetaminophen (HYDROCODON-ACETAMINOPHEN 5-325) 1 Each Tablet, 1 EACH PO Q4-6H PRN for PAIN, #15 TAB 0 Refills TAKE ONE TABLET BY MOUTH EVERY 4-6 HOURS NEEDED FOR PAIN Prov:TIFFANY HUI MD 12/29/17 Cephalexin (KEFLEX) 500 Mg Capsule, 500 MG PO Q6H, #28 CAP 0 Refills TAKE ONE CAPSULE BY MOUTH EVERY SIX HOURS Prov:TIFFANY HUI MD 12/29/17 Reported Medications Bupropion Hcl (WELLBUTRIN XL) 300 Mg Tab.er.24h, 300 MG PO HS, TAB 04/14/17 Acetaminophen (TYLENOL) 325 Mg Tablet, 650 MG PO Q4H 02/15/15 Discontinued Scripts Oxycodone Hcl/Acetaminophen (PERCOCET 5-325 MG TABLET) 1 Each Tablet, 1 EACH PO Q4-6H PRN for PAIN, #20 TAB Prov:WILFRED HERNANDEZ 04/23/17 Ketorolac Tromethamine (KETOROLAC TROMETHAMINE) 10 Mg Tab, 10 MG PO Q6H, #20 TAB Prov:TATA RILEY MD 04/21/17 Hydrocodone Bit/Acetaminophen (NORCO 5-325 TABLET) 1 Each Tablet, 1 EACH PO Q4H PRN for PAIN, #30 TAB Prov:TATA RILEY MD 04/21/17 Ondansetron (ZOFRAN ODT) 4 Mg Tab.rapdis, 4 MG PO Q6H PRN for NAUSEA/VOMITING, #20 TAB.NGUYỄN 0 Refills Prov:AVISCRISTIN MD 04/14/17 Past Medical/Surgical History Noncontributory towards the chief complaint Hx Smoking: Yes Smoking Status: Current: Every Day Smoker Exposure to Second Hand Smoke?: Yes Hx Substance Use Disorder: No Hx Alcohol Use: Yes (STATES SHE HAS NOT HAD ANY ALCOHOL FOR YEARS) Constitutional Vital Sign - Last 24 Hours 12/29/17 12/29/17 12/29/17 12/29/17 11:36 11:36 11:53 12:00 Temp 98.4 Pulse 106 105 Resp 20 B/P (MAP) 123/80 123/80 (94) 121/84 (96) Pulse Ox 94 96 O2 Delivery Room Air 12/29/17 12/29/17 12/29/17 12/29/17 12:23 12:30 12:53 13:00 Pulse 95 93 B/P (MAP) 115/80 (92) 120/78 (92) Pulse Ox 97 92 Physical Exam General Appearance: The patient is alert, has no immediate need for airway protection and no current signs of toxicity. Eyes: Pupils equal and round no injection. Respiratory: Chest is non tender, lungs are clear to auscultation. Cardiac: regular rate and rhythm [ ] Gastrointestinal: Abdomen is soft and non tender, no masses, bowel sounds n ormal. Musculoskeletal: Neck: Neck is supple and non tender. Extremities have full range of motion and are non tender. Skin: Patient has some cracked skin to the left lower extremity. There is also erythema that extends from the ankle up the anterior rod approximately midshaft of the tibia. This area is warm and tender to the touch. Medical Decision Making Data Points Result Diagram: 12/29/17 1159 12/29/17 1159 Laboratory Hematology Test 12/29/17 11:59 Red Blood Count 5.21 M/uL (4.17-5.56) Mean Corpuscular Volume 89.8 fL (80.0-96.0) Mean Corpuscular Hemoglobin 30.9 pg (26.0-33.0) Mean Corpuscular Hemoglobin Concent 34.4 g/dL (32.0-36.0) Red Cell Distribution Width 13.2 % (11.5-14.5) Mean Platelet Volume 8.4 fL (7.2-11.1) Neutrophils (%) (Auto) 84.5 % (39.4-72.5) Lymphocytes (%) (Auto) 11.5 % (17.6-49.6) Monocytes (%) (Auto) 3.1 % (4.1-12.4) Eosinophils (%) (Auto) 0.1 % (0.4-6.7) Basophils (%) (Auto) 0.8 % (0.3-1.4) Nucleated RBC Relative Count (auto) 0.0 /100WBC Neutrophils # (Auto) 9.6 K/uL (2.0-7.4) Lymphocytes # (Auto) 1.3 K/uL (1.3-3.6) Monocytes # (Auto) 0.4 K/uL (0.3-1.0) Eosinophils # (Auto) 0.0 K/uL (0.0-0.5) Basophils # (Auto) 0.1 K/uL (0.0-0.1) Nucleated RBC Absolute Count (auto) 0.00 K/uL Sodium Level 137 mmol/L (137-145) Potassium Level 3.5 mmol/L (3.5-5.0) Chloride Level 107 mmol/L (98-107) Carbon Dioxide Level 24 mmol/L (22-31) Blood Urea Nitrogen 9 mg/dl (7-18) Creatinine 0.70 mg/dl (0.52-1.04) Glomerular Filtration Rate Calc > 60.0 Random Glucose 100 mg/dl (75-110) Calcium Level 9.1 mg/dl (8.4-10.2) Chemistry Test 12/29/17 11:59 White Blood Count 11.3 k/uL (4.5-11.0) Red Blood Count 5.21 M/uL (4.17-5.56) Hemoglobin 16.1 g/dL (12.0-16.0) Hematocrit 46.8 % (34.0-47.0) Mean Corpuscular Volume 89.8 fL (80.0-96.0) Mean Corpuscular Hemoglobin 30.9 pg (26.0-33.0) Mean Corpuscular Hemoglobin Concent 34.4 g/dL (32.0-36.0) Red Cell Distribution Width 13.2 % (11.5-14.5) Platelet Count 215 K/uL (150-450) Mean Platelet Volume 8.4 fL (7.2-11.1) Neutrophils (%) (Auto) 84.5 % (39.4-72.5) Lymphocytes (%) (Auto) 11.5 % (17.6-49.6) Monocytes (%) (Auto) 3.1 % (4.1-12.4) Eosinophils (%) (Auto) 0.1 % (0.4-6.7) Basophils (%) (Auto) 0.8 % (0.3-1.4) Nucleated RBC Relative Count (auto) 0.0 /100WBC Neutrophils # (Auto) 9.6 K/uL (2.0-7.4) Lymphocytes # (Auto) 1.3 K/uL (1.3-3.6) Monocytes # (Auto) 0.4 K/uL (0.3-1.0) Eosinophils # (Auto) 0.0 K/uL (0.0-0.5) Basophils # (Auto) 0.1 K/uL (0.0-0.1) Nucleated RBC Absolute Count (auto) 0.00 K/uL Glomerular Filtration Rate Calc > 60.0 Calcium Level 9.1 mg/dl (8.4-10.2) EKG/Imaging Imaging Bedside ultrasound negative for DVT ED Course/Re-evaluation ED Course 12/29/2017 11:50:12 am After history and physical exam was performed differential diagnosis was formulated which includes but is not limited to cellulitis, DVT, peripheral edema, dermatitis. At this time will be to check CBC electrolytes place an IV. Given the high likelihood that this is infectious we'll give IV dose of Rocephin. Decision to Disposition Date: Dec 29, 2017 Decision to Disposition Time: 14:12 Depart Departure Latest Vital Signs Vital Signs Date Time Temp Pulse Resp B/P (MAP) Pulse Ox O2 Delivery O2 Flow Rate FiO2 12/29/17 13:00 120/78 (92) 12/29/17 12:53 93 92 12/29/17 11:36 98.4 20 Room Air Impression: Primary Impression: Cellulitis of left lower leg Condition: Improved Disposition: HOME OR SELF-CARE Referrals: OLIVIA HORTON PA-C (PCP) New Scripts Hydrocodone Bit/Acetaminophen (HYDROCODON-ACETAMINOPHEN 5-325) 1 Each Tablet 1 EACH PO Q4-6H PRN for PAIN, #15 TAB 0 Refills TAKE ONE TABLET BY MOUTH EVERY 4-6 HOURS NEEDED FOR PAIN Prov: TIFFANY HUI MD 12/29/17 Cephalexin (KEFLEX) 500 Mg Capsule 500 MG PO Q6H, #28 CAP 0 Refills TAKE ONE CAPSULE BY MOUTH EVERY SIX HOURS Prov: TIFFANY HUI MD 12/29/17 Patient Instructions: Cellulitis (DC) Additional Instructions: Take your antibiotics as directed Return to the emergency department immediately if her symptoms worsen at any time. Return to the emergency department in approximately 24 hours for reevaluation of your cellulitis. TIFFANY HUI MD Dec 29, 2017 11:36
[2017-12-29] MEDS ORDERED: KETOROLAC 15 MG/ML VIAL IVP ONE (11:50)
[2017-12-29] MEDS ORDERED: cefTRIAXone 1 GM VIAL IVP ONE (11:50)
[2017-12-29 12:20] LABS: PLATELET COUNT, AUTOMATED 215 K/uL (150-450)
[2017-12-29 13:00] VITALS: BP 120/78
[2017-12-29] MEDS ORDERED: LOR5/325 PO (13:11)
[2017-12-29] MEDS ORDERED: CEPH-13 PO (13:11)
--- NOTE | 2017-12-29 13:34 | RADIOLOGY IMAGING REPORT ---
FACILITY: [facility] - [place] PATIENT NAME: Charisma Duncan : 1980 MR: [id number] V: [id number] EXAM DATE: ORDERING PHYSICIAN: TIFFANY HUI TECHNOLOGIST: Location: [facility] - [place] Patient: Charisma Duncan : 1980 Visit/Account:[id number] Date of Sevice: 12/29/2017 VENOUS DOPP LOW LEFT EXTREMITY HISTORY: Left lower extremity redness and swelling for two days Concern for deep venous thrombus. COMPARISON: None. FINDINGS: Grayscale, duplex and color Doppler interrogation of the left lower extremity deep veins from common femoral vein to proximal calf was completed. Compression was performed where it was possible. The rig ht common femoral vein was evaluated using similar technique. Common femoral vein - Negative. Femoral vein - Negative. Deep femoral vein - Negative. Popliteal vein - Negative. Visualized deep calf veins - Negative. Popliteal fossa: Negative. Mildly enlarged left inguinal node is noted measuring about 0.8 x 1.3 x 2.9 cm. Contralateral (right) common femoral vein: Negative. IMPRESSION: 1. No evidence of acute deep venous thrombosis in the visualized veins of the left lower extremity. 2. Mildly enlarged left inguinal lymph node. Report Dictated By: Avel Yañez at 12/29/2017 1:29 PM Report E-Signed By: Avel Yañez at 12/29/2017 1:30 PM WSN:[id number]
== END 2017-12-29 13:27 | disposition home or self-care (01) ==
LOC: ER 11:42
DX: L03.116 Cellulitis of left lower limb (principal)
CPT/HCPCS: 85025; 93971; 96374; 96375; 99284; J0696; J1885; 82310; 82374; 82435; 82565; 82947; 84132; 84295; 84520